=== PATIENT | female | born 1970 | race Hispanic/Latino ===

== ENCOUNTER 2016-11-19 15:35 | Emergency (ER) | payer MEDICAID ==
[2016-11-19] MEDS ORDERED: ONDANSETRON 4 MG VIAL ONE ×2 (17:00→18:06)
[2016-11-19] MEDS ORDERED: MORPHINE 4 MG/ML SYR ONE (17:00)
[2016-11-19] MEDS ORDERED: DILAUDID 1 MG/ML AMP ONE (18:06)
[2016-11-19] MEDS ORDERED: SODIUM CHLORIDE 0.9% 100 ML IV ONE (19:10)
[2016-11-19] MEDS ORDERED: CEFTRIAXONE 1 GM VIAL ONE (19:10)
== END 2016-11-19 19:36 | disposition home or self-care (01) ==
LOC: ER 15:35
DX: N30.00 Acute cystitis without hematuria (principal); R10.9 Unspecified abdominal pain; Z79.899 Other long term (current) drug therapy; I10 Essential (primary) hypertension; J45.909 Unspecified asthma, uncomplicated
CPT/HCPCS: 36415; 74176; 80053; 81001; 83690; 85025; 87088; 96365; 96375; 96376

== ENCOUNTER 2016-12-05 16:18 | Inpatient (IN) | payer MEDICAID ==
[~2016-12-05] VITALS: Ht 157.5 cm; Wt 125.2 kg
[2016-12-05] MEDS ORDERED: TUSSIONEX SUSP UDC ONE (16:34)
[2016-12-05] MEDS ORDERED: ONDANSETRON 4 MG VIAL ONE ×2 (16:35→17:54)
[2016-12-05] MEDS ORDERED: NEB-ALBUTEROL 2.5 MG/3 ML INH ONE (16:37)
[2016-12-05] MEDS ORDERED: MORPHINE 4 MG/ML SYR ONE (17:55)
[2016-12-05] MEDS ORDERED: ORPHENADRINE 60 MG/2 ML AMP ONE (19:26)
[2016-12-05] MEDS ORDERED: DILAUDID 1 MG/ML AMP ONE (19:27)
[2016-12-05] MEDS: DUONEB INH SCH ×3 (20:35→23:19)
[2016-12-05] MEDS ORDERED: NEB-ALBUTEROL 2.5 MG/3 ML INH PRN (20:35)
[2016-12-05] MEDS ORDERED: SALINE FLUSH 10 ML FLUSH PRN (20:45)
[2016-12-05 22:24] VITALS: BP_SYST 152; BP_SYST 154; RESP 20; TEMP 97.7
[2016-12-05 22:25] VITALS: Ht 157.5 cm; Wt 125.2 kg
[2016-12-05] MEDS: NEB-BROVANA 15 MCG/2 ML INH SCH (22:53)
[2016-12-05 22:54] VITALS: RESP 20
[2016-12-05] MEDS: NEB-BUDESONIDE 0.5 MG INH SCH (22:54)
[2016-12-05] MEDS: LEVOFLOXACIN 750 MG/150 ML 150 ML IV SCH (23:00)
[2016-12-05] MEDS: METHYLPRED SOD SUCC 40 MG VIAL IV SCH (23:02)
[2016-12-05] MEDS: ONDANSETRON 4 MG VIAL IV PRN (23:53)
[2016-12-06] MEDS: MONTELUKAST 10 MG TAB PO SCH ×2 (00:09→08:06)
[2016-12-06] MEDS: GUAIFENESIN ER 600 MG TABCR PO SCH ×3 (00:09→20:18)
[2016-12-06] MEDS: METHYLPRED SOD SUCC 40 MG VIAL IV SCH ×5 (00:11→23:17)
[2016-12-06 04:21] VITALS: BP_SYST 114; RESP 18; TEMP 97.7
[2016-12-06] MEDS: SODIUM CHLORIDE 0.9% FLUSH BAG 500 ML IV SCH (06:13)
[2016-12-06] MEDS: PANTOPRAZOLE 40 MG TAB PO SCH (06:24)
[2016-12-06] MEDS: NEB-BUDESONIDE 0.5 MG INH SCH ×2 (07:11→19:58)
[2016-12-06] MEDS: NEB-BROVANA 15 MCG/2 ML INH SCH ×2 (07:11→19:58)
[2016-12-06] MEDS: DUONEB INH SCH ×5 (07:11→23:10)
[2016-12-06 07:12] VITALS: BP_SYST 116; RESP 20; TEMP 97.6
[2016-12-06] MEDS ORDERED: MISSING DOSE XX ONE (08:00)
[2016-12-06] MEDS: CETIRIZINE 10 MG TAB PO SCH (08:06)
[2016-12-06] MEDS: SALINE FLUSH 10 ML FLUSH SCH ×2 (08:08→20:18)
[2016-12-06] MEDS: LEVOFLOXACIN 750 MG/150 ML 150 ML IV SCH (08:32)
[2016-12-06] MEDS: amLODIPine 5 MG TAB PO SCH (08:33)
[2016-12-06] MEDS: oxyCODONE/APAP 10/325 TABLET PO PRN ×4 (10:36→22:33)
[2016-12-06 11:29] VITALS: BP_SYST 133; RESP 18; TEMP 97.3
[2016-12-06] MEDS ORDERED: OPTIRAY 350 100 ML VIAL HMH IV ONE (14:57)
[2016-12-06 14:58] VITALS: BP_SYST 141; RESP 18; TEMP 97.4
[2016-12-06] MEDS: ONDANSETRON 4 MG VIAL IV PRN (15:08)
[2016-12-06] MEDS: ALPRAZOLAM 1 MG TAB PO SCH (20:18)
[2016-12-06 20:27] VITALS: BP_SYST 138; RESP 18; TEMP 97.4
[2016-12-06 23:35] VITALS: BP_SYST 142; RESP 20; TEMP 97.7
[2016-12-07 04:05] VITALS: BP_SYST 149; RESP 20; TEMP 97.6
[2016-12-07] MEDS: oxyCODONE/APAP 10/325 TABLET PO PRN ×5 (04:08→21:02)
[2016-12-07] MEDS: SODIUM CHLORIDE 0.9% FLUSH BAG 500 ML IV SCH (05:28)
[2016-12-07] MEDS: PANTOPRAZOLE 40 MG TAB PO SCH (06:19)
[2016-12-07] MEDS: METHYLPRED SOD SUCC 40 MG VIAL IV SCH ×4 (06:19→20:50)
[2016-12-07] MEDS: NEB-BUDESONIDE 0.5 MG INH SCH ×2 (07:12→19:30)
[2016-12-07] MEDS: DUONEB INH SCH ×5 (07:12→23:30)
[2016-12-07] MEDS: NEB-BROVANA 15 MCG/2 ML INH SCH ×2 (07:12→19:30)
[2016-12-07 07:34] VITALS: BP_SYST 163; RESP 20; TEMP 97
[2016-12-07] MEDS: CETIRIZINE 10 MG TAB PO SCH (08:07)
[2016-12-07] MEDS: GUAIFENESIN ER 600 MG TABCR PO SCH ×2 (08:07→20:50)
[2016-12-07] MEDS: amLODIPine 5 MG TAB PO SCH (08:07)
[2016-12-07] MEDS: MONTELUKAST 10 MG TAB PO SCH (08:07)
[2016-12-07] MEDS: SALINE FLUSH 10 ML FLUSH SCH ×2 (08:08→20:49)
[2016-12-07] MEDS: LEVOFLOXACIN 750 MG TAB PO SCH (08:10)
[2016-12-07 12:03] VITALS: BP_SYST 138; RESP 20
[2016-12-07] MEDS: FLUTICASONE 0.05% NA BTL NARE EACH SCH ×2 (13:28→20:50)
[2016-12-07] MEDS: LIDOCAINE 2% VISC 80 ML, DIPHENHYDRAMINE (FOR COMPOUND) 80 ML, NYSTATIN SUSP FOR CPD 80 ML SWISH.SWAL SCH ×12 (13:29→20:50)
[2016-12-07 16:22] VITALS: BP_SYST 140; RESP 18; TEMP 98.4
[2016-12-07 19:34] VITALS: BP_SYST 123; RESP 16; TEMP 97.4
[2016-12-07] MEDS: ALPRAZOLAM 1 MG TAB PO SCH (20:50)
[2016-12-08 00:04] VITALS: BP_SYST 113; RESP 16; TEMP 98.1
[2016-12-08] MEDS: oxyCODONE/APAP 10/325 TABLET PO PRN ×5 (01:32→21:53)
[2016-12-08 04:22] VITALS: BP_SYST 136; RESP 18; TEMP 98.6
[2016-12-08] MEDS: METHYLPRED SOD SUCC 40 MG VIAL IV SCH (04:38)
[2016-12-08] MEDS: PANTOPRAZOLE 40 MG TAB PO SCH (05:24)
[2016-12-08] MEDS: SODIUM CHLORIDE 0.9% FLUSH BAG 500 ML IV SCH (06:00)
[2016-12-08 07:27] VITALS: BP_SYST 145; RESP 18; TEMP 97.5
[2016-12-08] MEDS: DUONEB INH SCH ×5 (07:36→22:47)
[2016-12-08] MEDS: NEB-BROVANA 15 MCG/2 ML INH SCH ×2 (07:36→19:00)
[2016-12-08] MEDS: NEB-BUDESONIDE 0.5 MG INH SCH ×2 (07:36→19:00)
[2016-12-08] MEDS: SALINE FLUSH 10 ML FLUSH SCH ×2 (08:00→20:18)
[2016-12-08] MEDS: amLODIPine 5 MG TAB PO SCH (09:00)
[2016-12-08] MEDS: GUAIFENESIN ER 600 MG TABCR PO SCH ×2 (09:29→20:19)
[2016-12-08] MEDS: CETIRIZINE 10 MG TAB PO SCH (09:29)
[2016-12-08] MEDS: MONTELUKAST 10 MG TAB PO SCH (09:30)
[2016-12-08] MEDS: LEVOFLOXACIN 750 MG TAB PO SCH (09:31)
[2016-12-08] MEDS: LIDOCAINE 2% VISC 80 ML, DIPHENHYDRAMINE (FOR COMPOUND) 80 ML, NYSTATIN SUSP FOR CPD 80 ML SWISH.SWAL SCH ×16 (09:31→21:20)
[2016-12-08] MEDS: FLUTICASONE 0.05% NA BTL NARE EACH SCH ×2 (09:31→20:19)
[2016-12-08] MEDS: NITROGLYCERIN SL 0.4 MG TAB SL PRN ×2 (09:59→13:53)
[2016-12-08 11:46] VITALS: BP_SYST 123; RESP 20; TEMP 97.8
[2016-12-08] MEDS: MORPHINE 2 MG/ML SYR IV PRN ×3 (11:49→20:31)
[2016-12-08] MEDS: PREDNISONE 20 MG TAB PO SCH (11:50)
[2016-12-08] MEDS: HCTZ 12.5 MG CAP PO SCH (13:17)
[2016-12-08 20:11] VITALS: BP_SYST 137; RESP 16; TEMP 98
[2016-12-08] MEDS: ALPRAZOLAM 1 MG TAB PO SCH (20:19)
[2016-12-08 23:38] VITALS: BP_SYST 107; RESP 16; TEMP 97.8
[2016-12-09] MEDS: MORPHINE 2 MG/ML SYR IV PRN ×6 (01:32→20:48)
[2016-12-09 03:45] VITALS: BP_SYST 134; RESP 18; TEMP 97.9
[2016-12-09] MEDS: oxyCODONE/APAP 10/325 TABLET PO PRN ×4 (04:29→22:49)
[2016-12-09] MEDS: NITROGLYCERIN SL 0.4 MG TAB SL PRN (05:00)
[2016-12-09] MEDS: SODIUM CHLORIDE 0.9% FLUSH BAG 500 ML IV SCH (06:00)
[2016-12-09] MEDS: NEB-BROVANA 15 MCG/2 ML INH SCH ×2 (06:43→19:27)
[2016-12-09] MEDS: NEB-BUDESONIDE 0.5 MG INH SCH ×2 (06:43→19:27)
[2016-12-09] MEDS: DUONEB INH SCH ×5 (06:43→23:06)
[2016-12-09 07:59] VITALS: BP_SYST 117; RESP 18; TEMP 97.6
[2016-12-09] MEDS: SALINE FLUSH 10 ML FLUSH SCH ×2 (08:00→20:33)
[2016-12-09] MEDS: amLODIPine 5 MG TAB PO SCH (09:00)
[2016-12-09] MEDS ORDERED: LEXISCAN 0.4 MG/5 ML SYRINGE IV ONE (09:43)
[2016-12-09] MEDS ORDERED: MORPHINE 2 MG/ML SYR ONE (11:11)
[2016-12-09] MEDS: PANTOPRAZOLE 40 MG TAB PO SCH (12:59)
[2016-12-09] MEDS: GUAIFENESIN ER 600 MG TABCR PO SCH ×2 (12:59→20:32)
[2016-12-09] MEDS: CETIRIZINE 10 MG TAB PO SCH (13:00)
[2016-12-09] MEDS: PREDNISONE 20 MG TAB PO SCH (13:00)
[2016-12-09] MEDS: HCTZ 12.5 MG CAP PO SCH (13:00)
[2016-12-09] MEDS: MONTELUKAST 10 MG TAB PO SCH (13:00)
[2016-12-09] MEDS: LIDOCAINE 2% VISC 80 ML, DIPHENHYDRAMINE (FOR COMPOUND) 80 ML, NYSTATIN SUSP FOR CPD 80 ML SWISH.SWAL SCH ×16 (13:00→20:32)
[2016-12-09] MEDS: LEVOFLOXACIN 750 MG TAB PO SCH (13:00)
[2016-12-09] MEDS: FLUTICASONE 0.05% NA BTL NARE EACH SCH ×2 (13:01→20:32)
[2016-12-09] MEDS ORDERED: KCL CR 20 MEQ TAB PO ONE (13:45)
[2016-12-09 16:51] VITALS: BP_SYST 161; RESP 18; TEMP 97.8
[2016-12-09 20:00] VITALS: BP_SYST 145; RESP 16; TEMP 97.8
[2016-12-09] MEDS: ALPRAZOLAM 1 MG TAB PO SCH (20:32)
[2016-12-09 22:54] VITALS: BP_SYST 122; RESP 16; TEMP 97.8
[2016-12-10] VITALS (13 sets, daily range): BP systolic 114–170; RESP 16–20; TEMP 97.5–98.8
[2016-12-10] MEDS: oxyCODONE/APAP 10/325 TABLET PO PRN ×4 (02:52→20:31)
[2016-12-10] MEDS: NITROGLYCERIN SL 0.4 MG TAB SL PRN ×4 (02:56→08:50)
[2016-12-10] MEDS: MORPHINE 2 MG/ML SYR IV PRN ×7 (04:02→23:25)
[2016-12-10] MEDS: SODIUM CHLORIDE 0.9% FLUSH BAG 500 ML IV SCH (05:19)
[2016-12-10] MEDS: PANTOPRAZOLE 40 MG TAB PO SCH (05:22)
[2016-12-10] MEDS: NEB-BROVANA 15 MCG/2 ML INH SCH ×2 (07:37→19:34)
[2016-12-10] MEDS: NEB-BUDESONIDE 0.5 MG INH SCH ×2 (07:37→19:35)
[2016-12-10] MEDS: DUONEB INH SCH ×5 (07:37→22:48)
[2016-12-10] MEDS: LEVOFLOXACIN 750 MG TAB PO SCH (08:45)
[2016-12-10] MEDS: amLODIPine 5 MG TAB PO SCH (08:46)
[2016-12-10] MEDS: PREDNISONE 20 MG TAB PO SCH (08:46)
[2016-12-10] MEDS: CETIRIZINE 10 MG TAB PO SCH (08:46)
[2016-12-10] MEDS: MONTELUKAST 10 MG TAB PO SCH (08:46)
[2016-12-10] MEDS: GUAIFENESIN ER 600 MG TABCR PO SCH ×2 (08:46→20:25)
[2016-12-10] MEDS: FLUTICASONE 0.05% NA BTL NARE EACH SCH ×2 (08:47→20:25)
[2016-12-10] MEDS: LIDOCAINE 2% VISC 80 ML, DIPHENHYDRAMINE (FOR COMPOUND) 80 ML, NYSTATIN SUSP FOR CPD 80 ML SWISH.SWAL SCH ×16 (08:47→20:25)
[2016-12-10] MEDS: SALINE FLUSH 10 ML FLUSH SCH ×2 (08:56→19:39)
[2016-12-10] MEDS: HCTZ 12.5 MG CAP PO SCH (10:04)
[2016-12-10] MEDS ORDERED: FENTANYL 100 MCG/2 ML AMP ONE (17:21)
[2016-12-10] MEDS ORDERED: LIDOCAINE/EPI 2% MPF 20 ML ONE (17:21)
[2016-12-10] MEDS ORDERED: MIDAZOLAM 2 MG/2 ML INJ ONE (17:21)
[2016-12-10] MEDS: ALPRAZOLAM 1 MG TAB PO SCH (20:25)
[2016-12-11] MEDS: oxyCODONE/APAP 10/325 TABLET PO PRN ×5 (01:49→18:23)
[2016-12-11 02:42] VITALS: BP_SYST 137; RESP 18; TEMP 98.6
[2016-12-11] MEDS: MORPHINE 2 MG/ML SYR IV PRN ×5 (05:21→23:38)
[2016-12-11] MEDS: SODIUM CHLORIDE 0.9% FLUSH BAG 500 ML IV SCH (05:22)
[2016-12-11] MEDS: PANTOPRAZOLE 40 MG TAB PO SCH (06:25)
[2016-12-11] MEDS: NEB-BROVANA 15 MCG/2 ML INH SCH ×2 (07:24→18:46)
[2016-12-11] MEDS: DUONEB INH SCH ×5 (07:24→22:40)
[2016-12-11] MEDS: NEB-BUDESONIDE 0.5 MG INH SCH ×2 (07:24→18:46)
[2016-12-11 07:40] VITALS: BP_SYST 153; RESP 18; TEMP 98.6
[2016-12-11] MEDS: CETIRIZINE 10 MG TAB PO SCH (07:55)
[2016-12-11] MEDS: FLUTICASONE 0.05% NA BTL NARE EACH SCH ×2 (07:55→21:02)
[2016-12-11] MEDS: LEVOFLOXACIN 750 MG TAB PO SCH (07:56)
[2016-12-11] MEDS: MONTELUKAST 10 MG TAB PO SCH (07:56)
[2016-12-11] MEDS: HCTZ 12.5 MG CAP PO SCH (07:56)
[2016-12-11] MEDS: amLODIPine 5 MG TAB PO SCH (07:56)
[2016-12-11] MEDS: GUAIFENESIN ER 600 MG TABCR PO SCH ×2 (07:56→21:02)
[2016-12-11] MEDS: PREDNISONE 20 MG TAB PO SCH (07:56)
[2016-12-11] MEDS: LIDOCAINE 2% VISC 80 ML, DIPHENHYDRAMINE (FOR COMPOUND) 80 ML, NYSTATIN SUSP FOR CPD 80 ML SWISH.SWAL SCH ×16 (07:57→21:03)
[2016-12-11] MEDS: SALINE FLUSH 10 ML FLUSH SCH ×2 (08:00→21:03)
[2016-12-11 11:17] VITALS: BP_SYST 152; RESP 16; TEMP 98.6
[2016-12-11 15:45] VITALS: BP_SYST 133; RESP 16; TEMP 98.8
[2016-12-11] MEDS ORDERED: hydrOXYzine PAM 50 MG CAP PO PRN (18:20)
[2016-12-11 20:08] VITALS: BP_SYST 133; RESP 18; TEMP 97.7
[2016-12-11] MEDS: ALPRAZOLAM 1 MG TAB PO SCH (21:02)
[2016-12-11] MEDS: DILAUDID 1 MG/ML AMP IV PRN (21:04)
[2016-12-12 00:40] VITALS: BP_SYST 141; RESP 16; TEMP 97.5
[2016-12-12 03:19] VITALS: BP_SYST 131; RESP 18; TEMP 98.3
[2016-12-12] MEDS: DILAUDID 1 MG/ML AMP IV PRN ×3 (03:27→13:17)
[2016-12-12] MEDS: SODIUM CHLORIDE 0.9% FLUSH BAG 500 ML IV SCH (05:50)
[2016-12-12] MEDS: MORPHINE 2 MG/ML SYR IV PRN ×2 (06:38→10:57)
[2016-12-12] MEDS: NEB-BUDESONIDE 0.5 MG INH SCH (07:31)
[2016-12-12] MEDS: NEB-BROVANA 15 MCG/2 ML INH SCH (07:31)
[2016-12-12] MEDS: DUONEB INH SCH ×2 (07:32→10:27)
[2016-12-12 08:30] VITALS: BP_SYST 155; RESP 18; TEMP 97.7
[2016-12-12] MEDS: PREDNISONE 20 MG TAB PO SCH (08:52)
[2016-12-12] MEDS: amLODIPine 5 MG TAB PO SCH (08:52)
[2016-12-12] MEDS: PANTOPRAZOLE 40 MG TAB PO SCH (08:52)
[2016-12-12] MEDS: LEVOFLOXACIN 750 MG TAB PO SCH (08:52)
[2016-12-12] MEDS: HCTZ 12.5 MG CAP PO SCH (08:52)
[2016-12-12] MEDS: MONTELUKAST 10 MG TAB PO SCH (08:53)
[2016-12-12] MEDS: GUAIFENESIN ER 600 MG TABCR PO SCH (08:53)
[2016-12-12] MEDS: CETIRIZINE 10 MG TAB PO SCH (08:53)
[2016-12-12] MEDS: FLUTICASONE 0.05% NA BTL NARE EACH SCH (08:54)
[2016-12-12] MEDS: LIDOCAINE 2% VISC 80 ML, DIPHENHYDRAMINE (FOR COMPOUND) 80 ML, NYSTATIN SUSP FOR CPD 80 ML SWISH.SWAL SCH ×4 (08:54)
[2016-12-12] MEDS: SALINE FLUSH 10 ML FLUSH SCH (09:02)
[2016-12-12 11:53] VITALS: BP_SYST 107; RESP 18; TEMP 97.5
[2016-12-12 14:10] VITALS: BP_SYST 107; RESP 18; TEMP 97.5
[2016-12-12 14:15] VITALS: RESP 16
== END 2016-12-12 14:55 | disposition home or self-care (01) | DRG 202 ==
LOC: ENRESERV → ENRESERVDT → ENRESERVTM → ER 16:18 → EMR 20:33 → 4THW 22:17
PROVIDERS: ADMIT Family Medicine Addiction Medicine; ATTEND Family Medicine Addiction Medicine
PROC: 4A023N7 Measurement of Cardiac Sampling and Pressure, Left Heart, Percutaneous Approach (ICD-10-PCS; principal; 2016-12-10)
PROC: B2111ZZ Fluoroscopy of Multiple Coronary Arteries using Low Osmolar Contrast (ICD-10-PCS; 2016-12-10)
PROC: B2151ZZ Fluoroscopy of Left Heart using Low Osmolar Contrast (ICD-10-PCS; 2016-12-10)
DX: J45.51 Severe persistent asthma with (acute) exacerbation (principal); B37.0 Candidal stomatitis; Z68.43 Body mass index [BMI] 50.0-59.9, adult; I10 Essential (primary) hypertension; Z77.22 Contact with and (suspected) exposure to environmental tobacco smoke (acute) (chronic); J30.89 Other allergic rhinitis; R07.89 Other chest pain; E66.01 Morbid (severe) obesity due to excess calories; E87.6 Hypokalemia; R10.11 Right upper quadrant pain
CPT/HCPCS: 36415; 71010; 71260; 76705; 78452; 80048; 80053; 82553; 83880; 84484; 85014; 85018; 85025; 85610; 85730; 87804; 87880; 93005; 93017; 93458; 94640; 94644; 94799; 96374; 96375; 96376; 99223; 99233; 99239